=== PATIENT | female | born 1985 | race Caucasian/White ===

== ENCOUNTER 2016-09-13 09:33 | Emergency (ER) | payer SELFPAY ==
[2016-09-13] MEDS ORDERED: Ibuprofen 800 MG TAB ONE (10:09)
[2016-09-13] MEDS ORDERED: Fentanyl 100 MCG/2 ML VIAL ONE (10:09)
[2016-09-13] MEDS ORDERED: Ondansetron ODT 4 MG TAB ONE (10:09)
--- NOTE | 2016-09-13 10:24 | RAD ---
PORTABLE AP CHEST: Date: 09/13/16 HISTORY: Thrown from horse yesterday and now complains of chest pain. FINDINGS: Cardiac silhouette and pulmonary vasculature are within normal limits. Lungs are clear without evide nce of a pneumothorax or pleural effusion. There is mild right convex curvature of the thoracic spin e. There is a calcification overlying the left supraclavicular region, which is difficult to further localize, but could be related to small calcified lymph node. No fracture is visualized on this exa m. IMPRESSION: No acute cardiopulmonary process. POS: [facility]
--- NOTE | 2016-09-13 10:55 | CT ---
CT HEAD WITHOUT IV CONTRASTS: Date: 09/13/16 HISTORY: Thrown from horse yesterday, complains of head injury/pain. FINDINGS: There is no evidence of a hemorrhage, acute infarction, mass effect, or midline shift. Ventricular s ystem is normal in size, shape, and position. There is left anterior and anterolateral frontal scalp soft tissue swelling, as well as left periorbital subcutaneous soft tissue swelling. No postseptal hematoma or stranding is present. No calvarial fracture is identified. The visualized paranasal sinu ses and mastoid air cells are clear. IMPRESSION: 1. No acute intracranial abnormality is demonstrated. 2. Left anterolateral frontal scalp hematoma and left periorbital subcutaneous soft tissue swelling . POS: [facility]
--- NOTE | 2016-09-13 10:56 | CT ---
CT CERVICAL SPINE: Date: 09/13/16 HISTORY: Patient thrown from a horse with neck pain. TECHNIQUE: Noncontrast enhanced CT images of the cervical spine obtained. Coronal and sagittal reconstructions obtained. FINDINGS: Images demonstrate no evidence of acute cervical spine fractures, subluxations, or bony lesions. Odo ntoid is unremarkable. No evidence of rosey or retrolisthesis seen. Facets are in normal anatomic a lignment. IMPRESSION: Normal CT of cervical spine. POS: [facility]
--- NOTE | 2016-09-13 12:17 | ERRECORD ---
[facility] EMERGENCY RECORD HPI FALL (09:54 RWAG) CHIEF COMPLAINT: Patient presents for evaluation of fall, from height 5-7 feet. HISTORIAN: History provided by patient, thrown from horse yesterday, horse "stepped on my head" ?LOC. Pt c/o head and left rib pain. LOCATION: Symptoms are localized, most severe to left face/head, left ribs. QUALITY: Unable to describe the quality of the pain. TIME COURSE: Patient unable to describe onset of symptoms, There has been no change in the patient's symptoms over time. ASSOCIATED WITH: Associated with headache, constant, Associated with numbness. EXACERBATED BY: Patient's condition exacerbated by nothing. RELIEVED BY: Patient's condition relieved by nothing because patient has not tried anything for relief. RISK FACTORS: No risk factors for spinal injury, No risk factors for intracranial bleed. ROS (09:57 RWAG) CONSTITUTIONAL: Negative constitutional review of systems. EYES: Negative eye review of systems. ENT: Negative ears, nose, throat review of systems. CARDIOVASCULAR: Negative cardiovascular review of systems. RESPIRATORY: Negative respiratory review of systems. GI: Negative gastrointestinal review of systems. GENITOURINARY FEMALE: Negative genitourinary review of systems. MUSCULOSKELETAL: Historian reports fall, reports injury. SKIN: Negative skin review of systems. NEUROLOGIC: Historian reports headache. ENDOCRINE: Negative endocrine review of systems. HEMO/LYMPHATIC: Normal hematologic/lymphatic system review. ALLERGIC/IMMUNOLOGIC: Normal allergy/immunologic system review. PSYCHIATRIC: Negative psychiatric review of systems. NOTES: All systems reviewed, negative except as described above. PAST MEDICAL HISTORY (09:47 AWAT) MEDICAL HISTORY: No past medical history. FEMALE SURGICAL HISTORY: Surgical history of section. CYST REMOVED FROM left neck, WISDOM TEETH REMOVAL. PSYCHIATRIC HISTORY: Psychiatric history includes, anxiety, depression. SOCIAL HISTORY: Patient denies alcohol, Patient denies drug use, Patient currently uses tobacco, smokes cigarettes, daily, Patient has smoked for 15 years, Patient smokes 1/2 packs per day, . KNOWN ALLERGIES Penicillins traMADol: Reaction: Nausea &a-1R&a+25V*p+0X*[id number]*c202B*c15G*c2P*p-0X&a-25V&a+1R Name: Elvia Tran : 1985 F31 MedRec: [id number] AcctNum: [id number] Prepared: FriSep 13, 2016 13:13 by Interface Page 1 of 3 pMD [facility] EMERGENCY RECORD CURRENT MEDICATIONS (09:44 AWAT) None VITAL SIGNS VITAL SIGNS: BP: 130/75, Pulse: 71, Resp: 18, Temp: 98.3 (Tympanic), Pain: 10 (Constant), O2 sat: 100 on Room Air, Time: 09/13/2016 09:39. (09:39 AWAT) BP: 101/62, Pulse: 67, Resp: 18, Temp: 98.1, Pain: 4, O2 sat: 99 on RA, Time: 09/13/2016 11:55. (11:55 SFRE) PHYSICAL EXAM (09:57 RWAG) CONSTITUTIONAL: Vital signs reviewed, Patient alert and oriented to person, place and time. HEAD: Head exam included findings of, no Calderon's sign, No raccoon eyes, Contusion to left frontal, bruising and swelling around left eye "blackeye". EYES: Eye exam included findings of eyelids normal to inspection, Pupils equally round and reactive to light, Extraocular muscles intact, Conjunctiva normal, Sclera normal, Fundoscopic exam normal. ENT: ENT exam normal. NECK: Neck exam normal. RESPIRATORY CHEST: Respiratory exam included findings of no respiratory distress, no egophony, Breath sounds clear, Breath sounds otherwise clear, Chest exam included findings of chest movement symmetrical, Chest expansion equal, Percussion normal, Tenderness, mild, to the left lateral chest, Palpation of chest reproduces symptoms. CARDIOVASCULAR: Cardiovascular assessment normal. ABDOMEN FEMALE: Abdominal exam normal. BACK: Back exam normal. UPPER EXTREMITY: Upper extremity exam normal. LOWER EXTREMITY: Lower extremity exam normal. NEURO: Neuro exam findings include patient oriented to person, place and time, Felisa coma scale 15, Speech normal, Gait normal, Memory normal, Cranial nerves intact, Deep tendon reflexes normal, no focal motor deficits, no focal sensory deficits, no cerebellar deficits. SKIN: Skin exam normal. LYMPHATIC: Lymphatic exam normal. PSYCHIATRIC: Psychiatric exam normal. MEDICATION ADMINISTRATION SUMMARY Drug Name: ondansetron, Dose Ordered: 8 mg, Route: Sublingual, Status: Given, Time: 10:30 09/13/2016, Drug Name: fentaNYL (PF) injection, Dose Ordered: 50 mcg, Route: Intramuscular, Status: Given, Time: 10:30 09/13/2016, Drug Name: ibuprofen, Dose Ordered: 800 mg, Route: Oral, Status: Given, Time: 10:30 09/13/2016, Detailed record available in Medication &a-1R&a+25V*p+0X*[id number]*c202B*c15G*c2P*p-0X&a-25V&a+1R Name: Elvia Tran : 1985 [facility] MedRec: [id number] AcctNum: [id number] Prepared: FriSep 13, 2016 13:13 by Interface Page 2 of 3 pMD [facility] EMERGENCY RECORD Service section. PROBLEM LIST No recorded problems DIAGNOSIS (11:42 RWAG) FINAL: PRIMARY: contusion chest wall, ADDITIONAL: Concussion. PRESCRIPTION No recorded prescriptions DISPOSITION PATIENT: Disposition Type: Discharge, Disposition: *Discharge Home, Disposition Transport: Car, Condition: Improved. (11:42 RWAG) Patient left the department. (12:05 SFRE) Edmond: AWAPatricia=Leandra RN, Juan R RWABBY=MD Flo, Morgan SFRE=TOSHA Ashton, Nilda &a-1R&a+25V*p+0X*r0805B*c202B*c15G*c2P*p-0X&a-25V&a+1R Name: Elvia Tran : 1985 F31 MedRec: [id number] AcctNum: [id number] Prepared: FriSep 13, 2016 13:13 by Interface Page 3 of 3 pMD MTDD
--- NOTE | 2016-09-13 12:22 | PICIS ---
[facility] EMERGENCY RECORD TRIAGE (09:44 AWAT) TRIAGE NOTES: Bucked off horse yesterday, sore all over,, but primarily here for left breast/thorax pain 7 hurts to take a deep breath. Also hurting to left head. Pt sporting a black left eye & abrasions to left leg, arm, left head, and nose. (09:44 AWAT) PATIENT: NAME: Elvia Tran, AGE: 31, GENDER: female, : Fri1985, TIME OF GREET: FriSep 13, 2016 09:35, PREFERRED LANGUAGE: Iranian, ETHNICITY: Not or , FALL RISK: NO, ECODE BILLING MAP: [facility], SSN: [id number], Zip Code: [address], KG WEIGHT: 77.11, , , PERSON ID: [id number], PCP: none. (09:44 AWAT) PHONE: . (10:14) COMPLAINT: RIB PAIN, HEAD PAIN. (09:44 AWAT) ADMISSION: URGENCY: 4 Non Urgent, ADMISSION SOURCE: Home, TRANSPORT: Walk-in, BED: ED -05. (09:44 AWAT) PAIN: Patient complains of pain described as, aching, deep, miserable, sharp, on a scale 0-10 patient rates pain as 10, Location left thorax with deep breathing-sharp., Onset was 09/12/2016 @ 6:00 pm. (09:47 AWAT) IMMUNIZATIONS: Flu vaccine not up to date, Tetanus not up to date, Pneumococcal vaccine not up to date. (09:47 AWAT) SIRS SCORING: Temp range 96.8-101.1 (0), respiratory rate 12-24 (0), Mental Status altered: no (0). (09:47 AWAT) LMP: Last menstrual period: 08/12/2016. (09:47 AWAT) PROVIDERS: TRIAGE NURSE: Juan R Mobley RN. (09:44 AWAT) VITAL SIGNS: BP 130/75, Pulse 71, Resp 18, Temp 98.3, (Tympanic), Pain 10, (Constant), O2 Sat 100, on Room Air, Time 09/13/2016 09:39. (09:39 AWAT) PREVIOUS VISIT ALLERGIES: Penicillins. (09:44 AWAT) Penicillins. (09:47 AWAT) KNOWN ALLERGIES Penicillins traMADol: Reaction: Nausea CURRENT MEDICATIONS (09:44 AWAT) None VITAL SIGNS VITAL SIGNS: BP: 130/75, Pulse: 71, Resp: 18, Temp: 98.3 (Tympanic), Pain: 10 (Constant), O2 sat: 100 on Room Air, Time: 09/13/2016 09:39. (09:39 AWAT) BP: 101/62, Pulse: 67, Resp: 18, Temp: 98.1, Pain: 4, O2 sat: 99 on RA, Time: 09/13/2016 11:55. (11:55 SFRE) NURSING ASSESSMENT: FOCUSED (09:50 AWAT) CONSTITUTIONAL: Complex assessment performed, Patient arrives ambulatory, Gait steady, History obtained from patient, Patient &a-1R&a+25V*p+0X*u6178H*c202B*c15G*c2P*p-0X&a-25V&a+1R Name: Elvia Tran : 1985 F31 MedRec: [id number] AcctNum: [id number] Prepared: FriSep 13, 2016 13:18 by Interface Page 1 of 10 pMD [facility] EMERGENCY RECORD appears, uncomfortable, Patient cooperative, Patient alert, Oriented to person, place and time, Skin warm, Skin dry, Skin normal in color, Mucous membranes pink, Mucous membranes moist, Patient is well-groomed, Patient complains of PAIN FROM GETTING BUCKED OFF HORSE YESTERDAY. PAIN: aching pain, miserable pain, sharp pain, LEFT THORAX, LEFT HEAD, Onset of pain 09/12/2016 1800, constant, on a scale 0-10 patient rates pain as 10. EYES: Focused eye assessment finding include pupils equally round and reactive to light, Left pupil 3 mm in size, Right pupil 3 mm in size. NEURO: Focused neuro assessment findings include patient alert, cooperative, No facial droop noted, Speech coherent, no weakness, no numbness, Loss of consciousness for unknown length of time. GCS: Eye opening: (4) - Spontaneous, Verbal: (5) - Oriented/conversive, Motor: (6) - Obeys commands/Spontaneous, GCS Total: 15. RESPIRATORY: Focused respiratory assessment findings include breath sounds clear, to bilateral upper lobes, to the right middle lobe, to bilateral lower lobes. ABDOMEN: Focused abdominal assessment findings include abdomen soft, non tender. GENITOURINARY FEMALE: Focused genitourinary assessment not applicable. MUSCULOSKELETAL: Focused musculoskeletal assessment findings include normal range of motion, radial pulse +3, pedal pulse +3. LACERATION: Focused laceration assessment not applicable. NOTES: Emotional support needed and given, Notes: SEE PRIMARY & SECONDARY SURVEYS. PT SORE FROM BEING BUCKED OFF HORSE... SAFETY: Side rails up, Cart/Stretcher in lowest position, Call light within reach, Hospital ID band on, Physician notified of above findings. NURSING ASSESSMENT: PRIMARY SURVEY TRAUMA (09:50 AWAT) MECHANISM OF INJURY: Mechanism of injury fall, landing on left side, BUCKED OFF OORSE YESTERDAYF H. AIRWAY AND C-SPINE: Primary trauma survey airway and cervical spine assessment findings include airway patent, Gag reflex intact. BREATHING: Primary trauma survey breathing assessment findings include trachea midline, Breath sounds equal. CIRCULATION: Primary trauma survey circulation assessment findings include palpable pulse, radial, pedal, Heart sounds normal, Systolic blood pressure greater than 100, Capillary refill less than 2 seconds. DISABILITY: Primary trauma survey disability assessment findings include patient alert and oriented to person, place and time, Pupils equally round and reactive to light, Left pupil 3 mm in size, Right &a-1R&a+25V*p+0X*[id number]*c202B*c15G*c2P*p-0X&a-25V&a+1R Name: Elvia Tran : 1985 F31 MedRec: [id number] AcctNum: [id number] Prepared: FriSep 13, 2016 13:18 by Interface Page 2 of 10 pMD [facility] EMERGENCY RECORD pupil 3 mm in size, Movement to all extremities, GCS:, Eye opening: (4) - Spontaneous, Verbal: (5) - Oriented/conversive, Motor: (6) - Obeys commands/Spontaneous, GCS Total: 15. NOTES: Patient tolerated procedure well. NURSING ASSESSMENT: SECONDARY SURVEY TRAUMA (09:50 AWAT) MECHANISM OF INJURY: Mechanism of injury fall, Notes: BUCKED OFF HORSE YESTERDAY. CONSTITUTIONAL: Simple assessment performed, Patient arrives ambulatory, Gait steady, History obtained from patient, Patient appears, uncomfortable, Patient cooperative, Patient alert, Oriented to person, place and time, Skin warm, Skin dry, Skin normal in color, Mucous membranes pink, Mucous membranes moist, Patient is well-groomed, Patient complains of PAIN LEFT THORAX/BREAST REGION, LEFT HEAD. PAIN: aching pain, ACHING PAIN TO LEFT HEAD. SHARP PAIN TO LEFT THORAX REGION WITH DEEP BREATH., Onset of pain 09/12/2016 1800, on a scale 0-10 patient rates pain as 10, Pain exacerbated by, palpation, pressure, Nothing has been tried to alleviate the pain. SKIN: Skin assessment findings include skin warm, Skin dry, Skin normal in color, Inspection findings include abrasion, to LEFT HEAD, NOSE, LEFT KNEE, LEFT ELBOW & FOREARM., Notes: LEFT EYE BLACK. NEURO: Pupils equally round and reactive to light, Left pupil 3 mm in size, Right pupil 3 mm in size, Able to close eyes, Face symmetrical, Speech normal, GCS:, Eye opening: (4) - Spontaneous, Verbal: (5) - Oriented/conversive, Motor: (6) - Obeys commands/Spontaneous, GCS Total: 15, Hand grasps equal, Upper extremity strength strong, Lower extremity strength strong, Foot press equal, Notes: NO ABNORMALITIES OTHER THAN PAIN & ABRASIONS. EYES: Sclera, with hemorrhage on the left, normal on the right, Pupils equally round and reactive to light, Left pupil 3 mm in size, Right pupil 3 mm in size. EYES TRAUMA: Inspection findings include ecchymosis, to LEFT EYE. DENTAL: Dental assessment findings include mouth normal, Teeth normal. HEAD TRAUMA: Inspection findings include abrasion, to LEFT HEAD. NECK: Neck assessment findings include trachea midline, Notes: WNL. NECK TRAUMA: Neck trauma assessment findings include trachea midline, Notes: WNL. BACK: Right radial pulse +3(easily palpated, considered normal), Left radial pulse +3(easily palpated, considered normal), Left dorsalis pedis pulse +3(easily palpated, considered normal), Right dorsalis pedis pulse +3(easily palpated, considered normal), Notes: &a-1R&a+25V*p+0X*u2720W*c202B*c15G*c2P*p-0X&a-25V&a+1R Name: Elvia Tran : 1985 F31 MedRec: [id number] AcctNum: [id number] Prepared: FriSep 13, 2016 13:18 by Interface Page 3 of 10 pMD [facility] EMERGENCY RECORD WNL. RESPIRATORY/CHEST: Breath sounds clear, Respiratory assessment findings include respiratory effort easy, Respirations regular, Conversing normally, Neck and chest exam findings include trachea midline, Chest expansion equal, Chest movement symmetrical, Tenderness, to LEFT THORAX/BREAST REGION. CARDIOVASCULAR: Cardiovascular assessment findings include heart rate normal. THORACIC TRAUMA: Thoracic trauma assessment findings include chest movement symmetrical, Notes: VISUAL INSPECTION IS WNL. ABDOMEN: Abdomen assessment findings include abdomen symmetrical, Abdomen soft, Notes: WNL. GENITOURINARY FEMALE: Notes: DENIES PROBLEMS IN THIS REGION. LEFT UPPER EXTREMITY: Left upper extremity assessment findings include capillary refill less than 2 seconds, Skin color normal to hand, Skin temperature to hand warm, Distal sensation intact, Muscle tone normal, radial pulse is +3, Inspection findings include abrasion, to L ELBOW, FOREARM. RIGHT UPPER EXTREMITY: Right upper extremity assessment findings include capillary refill less than 2 seconds, Skin color normal to hand, Skin temperature to hand warm, Distal sensation intact, Muscle tone normal, radial pulse is +3, Notes: WNL. LEFT LOWER EXTREMITY: Left lower extremity assessment findings include capillary refill less than 2 seconds, Skin color normal, Skin temperature warm, Distal sensation intact, Muscle tone normal, dorsalis pedis pulse is +3, Inspection findings include abrasion, to LEFT KNEE. RIGHT LOWER EXTREMITY: Right lower extremity assessment findings include capillary refill less than 2 seconds, Skin color normal, Skin temperature warm, Distal sensation intact, Muscle tone normal, dorsalis pedis pulse is +3, Notes: WNL. PSYCH/SOCIAL: Psychiatric/social assessment findings include affect normal, Notes: CALM & COOPERATIVE. NOTES: Patient tolerated procedure well. SAFETY: Side rails up, Cart/Stretcher in lowest position, Call light within reach, Hospital ID band on, Notes: PT SAID HER FRIEND DROPPED HER OFF, WENT TO THE STORE, AND WILL BE BACK TO GET HER., Physician notified of above findings. NURSING PROCEDURE: DISCHARGE NOTE (11:55 SFRE) DISCHARGE: Patient discharged to home, ambulating without assistance, friend driving, accompanied by //partner, Summary of Care printed/ provided, Patient requested and was provided an electronic copy of Discharge Instructions, Discharge instructions given to patient, Simple or moderate discharge teaching performed, by TOSHA PEÑA, F/U WITH PCP. RX DIRECTED. RETURN TO ED NEEDED FOR NEW/CONCERNING OR WORSENING SYMPTOMS., Prescriptions given and instructions on side effects given, Name of prescription(s) &a-1R&a+25V*p+0X*m9845D*c202B*c15G*c2P*p-0X&a-25V&a+1R Name: Elvia Tran : 1985 F31 MedRec: [id number] AcctNum: [id number] Prepared: FriSep 13, 2016 13:18 by Interface Page 4 of 10 pMD [facility] EMERGENCY RECORD given: [facility]CO 10MG, Above person(s) verbalized understanding of discharge instructions and follow-up care. SAFETY: Side rails up, Cart/Stretcher in lowest position, Family at bedside, Call light within reach, Hospital ID band on. VITAL SIGNS: BP: 101, / 62, Pulse: 67, Resp: 18, Temp: 98.1, Pain: 4, O2 sat: 99, on: RA. NURSING PROCEDURE: NURSE NOTES (11:39 SFRE) NURSES NOTES: Patient in no apparent distress, Patient resting quietly, Patient is awaiting results, Patient is awaiting disposition. NURSING PROCEDURE: TRANSPORT TO TESTS (10:05 AWAT) PATIENT IDENTIFIER: Patient actively involved in identification process, Patient's identity verified by patient stating name, Patient's identity verified by patient stating date, Patient's identity verified by hospital ID bracelet. TRANSPORT TO TESTS: Transport indicated to facilitate diagnosis, Patient transported to x-ray, ambulatory, Accompanied by x-ray accounting technician. NOTES: Patient tolerated procedure well. SAFETY: Side rails up, Cart/Stretcher in lowest position, Call light within reach, Hospital ID band on, Physician notified of above findings. ORDER DETAILS Order Name: CT Brain WO Con, Status: Active, Time: 09:52 09/13/2016, User: XIN, - Ordered for: MD Rossi Richard, - Entered by: MD Rossi Richard - FriSep 13, 2016 09:52, - Quantity: 1, Order Name: CT Cervical Spine WO Con, Status: Active, Time: 09:52 09/13/2016, User: XIN, - Ordered for: MD Rossi Richard, - Entered by: MD Rossi Richard - FriSep 13, 2016 09:52, - Quantity: 1, Order Name: XR Chest 1 View Portable, Status: Active, Time: 09:49 09/13/2016, User: XIN, - Ordered for: MD Rossi Richard, - Entered by: MD Rossi Richard - FriSep 13, 2016 09:49, - Quantity: 1. MEDICATION ADMINISTRATION SUMMARY Drug Name: ondansetron, Dose Ordered: 8 mg, Route: Sublingual, Status: Given, Time: 10:30 09/13/2016, Drug Name: fentaNYL (PF) injection, Dose Ordered: 50 mcg, Route: Intramuscular, Status: Given, Time: 10:30 09/13/2016, Drug Name: ibuprofen, Dose Ordered: 800 mg, Route: Oral, Status: &a-1R&a+25V*p+0X*q7003Z*c202B*c15G*c2P*p-0X&a-25V&a+1R Name: Elvia Tran : 1985 F31 MedRec: [id number] AcctNum: [id number] Prepared: FriSep 13, 2016 13:18 by Interface Page 5 of 10 pMD [facility] EMERGENCY RECORD Given, Time: 10:30 09/13/2016, Detailed record available in Medication Service section. MEDICATION SERVICE (10:30 [facility]) fentaNYL (PF) injection: Order: fentaNYL (PF) injection (fentanyl citrate/preservative free) - Dose: 50 mcg : Intramuscular Schedule: Now Ordered by: Morgan Rossi MD Entered by: Morgan Rossi MD FriSep 13, 2016 09:53 , Acknowledged by: Nilda Ashton RN FriSep 13, 2016 10:03 Documented as given by: Juan R Mobley RN FriSep 13, 2016 10:30 Patient, Medication, Dose, Route and Time verified prior to administration. IM medication, Amount given: 50MCG, Amount wasted: 50MCG, Medication administered to right buttock, Correct patient, time, route, dose and medication confirmed prior to administration, Patient advised of actions and side-effects prior to administration, Allergies confirmed and medications reviewed prior to administration, Administered by SINA GIVENS, Patient in position of comfort, Side rails up, Cart in lowest position. ibuprofen: Order: ibuprofen - Dose: 800 mg : Oral Schedule: Now Ordered by: Morgan Rossi MD Entered by: Morgan Rossi MD FriSep 13, 2016 09:53 , Acknowledged by: Nilda Ashton RN FriSep 13, 2016 10:04 Documented as given by: Juan R Mobley RN FriSep 13, 2016 10:30 Patient, Medication, Dose, Route and Time verified prior to administration. Amount given: 800MG, Site: Medication administered P.O., Correct patient, time, route, dose and medication confirmed prior to administration, Patient advised of actions and side-effects prior to administration, Allergies confirmed and medications reviewed prior to administration, Administered by AW, Patient in position of comfort, Side rails up, Cart in lowest position. ondansetron: Order: ondansetron - Dose: 8 mg : Sublingual Schedule: Now Ordered by: Morgan Rossi MD Entered by: Morgan Rossi MD FriSep 13, 2016 09:54 , Acknowledged by: Nilda Ashton RN FriSep 13, 2016 10:03 Documented as given by: Juan R Mobley RN FriSep 13, 2016 10:30 Patient, Medication, Dose, Route and Time verified prior to administration. Amount given: 8MG, Site: Medication administered S.L., Correct patient, time, route, dose and medication confirmed prior to administration, Patient advised of actions and side-effects prior to administration, Allergies confirmed and medications reviewed prior to administration, Administered by AW, Patient in position of comfort, Side rails up, Cart in lowest position. &a-1R&a+25V*p+0X*j1862D*c202B*c15G*c2P*p-0X&a-25V&a+1R Name: Elvia Tran : 1985 F31 MedRec: [id number] AcctNum: [id number] Prepared: FriSep 13, 2016 13:18 by Interface Page 6 of 10 pMD [facility] EMERGENCY RECORD HPI FALL (09:54 RW) CHIEF COMPLAINT: Patient presents for evaluation of fall, from height 5-7 feet. HISTORIAN: History provided by patient, thrown from horse yesterday, horse "stepped on my head" ?LOC. Pt c/o head and left rib pain. LOCATION: Symptoms are localized, most severe to left face/head, left ribs. QUALITY: Unable to describe the quality of the pain. TIME COURSE: Patient unable to describe onset of symptoms, There has been no change in the patient's symptoms over time. ASSOCIATED WITH: Associated with headache, constant, Associated with numbness. EXACERBATED BY: Patient's condition exacerbated by nothing. RELIEVED BY: Patient's condition relieved by nothing because patient has not tried anything for relief. RISK FACTORS: No risk factors for spinal injury, No risk factors for intracranial bleed. ROS (09:57 RWAG) CONSTITUTIONAL: Negative constitutional review of systems. EYES: Negative eye review of systems. ENT: Negative ears, nose, throat review of systems. CARDIOVASCULAR: Negative cardiovascular review of systems. RESPIRATORY: Negative respiratory review of systems. GI: Negative gastrointestinal review of systems. GENITOURINARY FEMALE: Negative genitourinary review of systems. MUSCULOSKELETAL: Historian reports fall, reports injury. SKIN: Negative skin review of systems. NEUROLOGIC: Historian reports headache. ENDOCRINE: Negative endocrine review of systems. HEMO/LYMPHATIC: Normal hematologic/lymphatic system review. ALLERGIC/IMMUNOLOGIC: Normal allergy/immunologic system review. PSYCHIATRIC: Negative psychiatric review of systems. NOTES: All systems reviewed, negative except as described above. PAST MEDICAL HISTORY (09:47 AWAT) MEDICAL HISTORY: No past medical history. FEMALE SURGICAL HISTORY: Surgical history of section. CYST REMOVED FROM left neck, WISDOM TEETH REMOVAL. PSYCHIATRIC HISTORY: Psychiatric history includes, anxiety, depression. SOCIAL HISTORY: Patient denies alcohol, Patient denies drug use, Patient currently uses tobacco, smokes cigarettes, daily, Patient has smoked for 15 years, Patient smokes 1/2 packs per day, . PHYSICAL EXAM (09:57 RWAG) CONSTITUTIONAL: Vital signs reviewed, Patient alert and oriented &a-1R&a+25V*p+0X*e4219R*c202B*c15G*c2P*p-0X&a-25V&a+1R Name: Elvia Tran : 1985 F31 MedRec: [id number] AcctNum: [id number] Prepared: FriSep 13, 2016 13:18 by Interface Page 7 of 10 pMD [facility] EMERGENCY RECORD to person, place and time. HEAD: Head exam included findings of, no Calderon's sign, No raccoon eyes, Contusion to left frontal, bruising and swelling around left eye "blackeye". EYES: Eye exam included findings of eyelids normal to inspection, Pupils equally round and reactive to light, Extraocular muscles intact, Conjunctiva normal, Sclera normal, Fundoscopic exam normal. ENT: ENT exam normal. NECK: Neck exam normal. RESPIRATORY CHEST: Respiratory exam included findings of no respiratory distress, no egophony, Breath sounds clear, Breath sounds otherwise clear, Chest exam included findings of chest movement symmetrical, Chest expansion equal, Percussion normal, Tenderness, mild, to the left lateral chest, Palpation of chest reproduces symptoms. CARDIOVASCULAR: Cardiovascular assessment normal. ABDOMEN FEMALE: Abdominal exam normal. BACK: Back exam normal. UPPER EXTREMITY: Upper extremity exam normal. LOWER EXTREMITY: Lower extremity exam normal. NEURO: Neuro exam findings include patient oriented to person, place and time, Felisa coma scale 15, Speech normal, Gait normal, Memory normal, Cranial nerves intact, Deep tendon reflexes normal, no focal motor deficits, no focal sensory deficits, no cerebellar deficits. SKIN: Skin exam normal. LYMPHATIC: Lymphatic exam normal. PSYCHIATRIC: Psychiatric exam normal. EVENTS TRANSFER: Triage to Emergency Main ED -05. (FriSep 13, 2016 09:44 AWAT) Removed from Emergency Main ED -05. (12:05 SFRE) PROBLEM LIST No recorded problems DIAGNOSIS (11:42 RWAG) FINAL: PRIMARY: contusion chest wall, ADDITIONAL: Concussion. DISPOSITION PATIENT: Disposition Type: Discharge, Disposition: *Discharge Home, Disposition Transport: Car, Condition: Improved. (11:42 RWAG) Patient left the department. (12:05 SFRE) INSTRUCTION (11:42 RWAG) DISCHARGE: CHEST CONTUSION, CONCUSSION, NO WAKE UP. FOLLOWUP: Follow up with Primary Care Physician in 5 days. SPECIAL: Follow-up with your PCP. &a-1R&a+25V*p+0X*x1363R*c202B*c15G*c2P*p-0X&a-25V&a+1R Name: Elvia Tran : 1985 F31 MedRec: [id number] AcctNum: [id number] Prepared: FriSep 13, 2016 13:18 by Interface Page 8 of 10 pMD [facility] EMERGENCY RECORD PRESCRIPTION No recorded prescriptions IMAGING PRESCRIPTION: Image captured from scanner. (11:47 SFRE) *DISCHARGE INSTRUCTIONS RECEIPT: Image captured from scanner. (12:04 SFRE) *SUPPLY CHARGE SHEET: Image captured from scanner. (12:04 SFRE) ADMIN (13:11 RWAG) DIGITAL SIGNATURE: MD Rossi Richard. RESULTS RADIOLOGY: XR Chest 1 View Portable Observe DT: FriSep 13, 2016 09:50, CXRP PORTABLE AP CHEST: Date: 09/13/16 HISTORY: Thrown from horse yesterday and now complains of chest pain. FINDINGS: Cardiac silhouette and pulmonary vasculature are within normal limits. Lungs are clear without evide nce of a pneumothorax or pleural effusion. There is mild right convex curvature of the thoracic spin e. There is a calcification overlying the left supraclavicular region, which is difficult to further localize, but could be related to small calcified lymph node. No fracture is visualized on this exa m. IMPRESSION: No acute cardiopulmonary process. POS: [facility] . (10:38 RWAG) CT Brain WO Con Observe DT: FriSep 13, 2016 09:54, BR CT HEAD WITHOUT IV CONTRASTS: Date: 09/13/16 HISTORY: Thrown from horse yesterday, complains of head injury/pain. &a-1R&a+25V*p+0X*h3771X*c202B*c15G*c2P*p-0X&a-25V&a+1R Name: Elvia Tran : 1985 F31 MedRec: [id number] AcctNum: [id number] Prepared: FriSep 13, 2016 13:18 by Interface Page 9 of 10 pMD [facility] EMERGENCY RECORD FINDINGS: There is no evidence of a hemorrhage, acute infarction, mass effect, or midline shift. Ventricular s ystem is normal in size, shape, and position. There is left anterior and anterolateral frontal scalp soft tissue swelling, as well as left periorbital subcutaneous soft tissue swelling. No postseptal hematoma or stranding is present. No calvarial fracture is identified. The visualized paranasal sinu ses and mastoid air cells are clear. IMPRESSION: 1. No acute intracranial abnormality is demonstrated. 2. Left anterolateral frontal scalp hematoma and left periorbital subcutaneous soft tissue swelling . POS: [facility] . (11:32 SFRE) [place]: AWAT=TOSHA Mobley, Juan R RWABBY=MD Flo, Morgan SFRE=TOSHA Ashton, Nilda &a-1R&a+25V*p+0X*n9285H*c202B*c15G*c2P*p-0X&a-25V&a+1R Name: Elvia Tran : 1985 [facility] MedRec: [id number] AcctNum: [id number] Prepared: FriSep 13, 2016 13:18 by Interface Page 10 of 10 pMD [facility] MEDICATION RECONCILIATION You were seen in the Emergency Department on: FriSep 13, 2016 KNOWN ALLERGIES Penicillins traMADol: Reaction: Nausea MEDICATIONS GIVEN WHILE IN THE EMERGENCY DEPARTMENT ibuprofen - Dose: 800 milligram(s) : Oral fentaNYL (PF) injection (fentanyl citrate/preservative free) - Dose: 50 microgram(s) : Intramuscular ondansetron - Dose: 8 milligram(s) : Sublingual HOME MEDICATIONS None Notes from the emergency department Reviewed with patient &a-1R&a+25V*p+0X*b2988N*c202B*c15G*c2P*p-0X&a-25V&a+1R Name: Elvia Tran : 1985 1 MedRec: [id number] AcctNum: [id number] Prepared: FriSep 13, 2016 13:18 by Interface pMD MTDD
== END 2016-09-13 11:55 | disposition home or self-care (01) ==
LOC: MADERS 09:33
DX: S20.212A Contusion of left front wall of thorax, initial encounter (principal); S06.0X9A Concussion with loss of consciousness of unspecified duration, initial encounter; F41.9 Anxiety disorder, unspecified; F32.9 Major depressive disorder, single episode, unspecified; F17.210 Nicotine dependence, cigarettes, uncomplicated; X58.XXXA Exposure to other specified factors, initial encounter
CPT/HCPCS: 70450; 71010; 72125; 96372; J3010; Q0162

== ENCOUNTER 2017-04-06 01:56 | Emergency (ER) | payer OTHER, SELFPAY ==
[2017-04-06 02:37] LABS: BHCG - Serum Negative (NEGATIVE); Pregs Control Background? CLEAR/WHITE (CLR/WHITE); Pregs Control Bar Appear? YES (CONTROL BAR)
[2017-04-06 02:44] LABS: #Basophils 0.1 thou/uL (0.0-0.2); #Eosinphils 0.2 thou/uL (0.0-0.7); #Lymphocytes 2.7 thou/uL (1.20-3.40); #Monocytes 1.1 thou/uL (0.11-0.59); #Neutrophils 5.6 thou/uL (1.40-6.50); %Eosinophils 2.4 % (0.0-10.0); %Lymphocytes 27.9 % (21.0-51.0); %Monocytes 10.9 % (0.0-10.0); %Neutrophils 57.8 % (42.0-75.0); Hemoglobin 12.4 g/dL (12.0-16.0); Mean Corpuscular HGB CONC 33.9 g/dL (32.0-36.0); Mean Corpuscular Hemoglobin 30.9 pg (27.0-31.0); Mean Corpuscular Volume 91.2 fl (81.0-99.0); Mean Platelet Volume 8.4 fL (7.4-10.4); Platelet Count 285 thou/uL (130-400); RBC Distribution Width 12.7 % (11.5-14.5); Red Blood Cell (RBC) Count 4.02 mill/uL (4.20-5.40); White Blood Cell (WBC) Count 9.7 thou/uL (4.8-10.8)
[2017-04-06 02:46] LABS: ALT (SGPT) 9 U/L (8-55); AST (SGOT) 15 U/L (5-34); Alcohol Less than 10 mg/dL (Less than 10); Alkaline Phosphatase 69 U/L (40-150); Anion Gap 14 mmol/L (10-20); BUN (Urea Nitrogen) 8 mg/dL (7.0-18.7); Bilirubin, Total 0.4 mg/dL (0.2-1.2); Calc. Creatinine Clearance 0 mL/min (70-130); Calcium 8.8 mg/dL (7.8-10.44); Carbon Dioxide 22 mmol/L (22-29); Chloride 108 mmol/L (98-107); Estimated GFR-MDRD 86; Globulin 2.9 g/dL (2.4-3.5); Glucose 92 mg/dL (70-105); Lipase 21 U/L (8-78); Potassium 3.2 mmol/L (3.5-5.1); Protein, Total 6.9 g/dL (6.0-8.3); Sodium 141 mmol/L (136-145)
[2017-04-06] MEDS ORDERED: Ketorolac Tromethamine 30 MG/ML VIAL ONE (02:57)
[2017-04-06] MEDS ORDERED: Ondansetron HCl/PF 4 MG/2 ML Vial ONE (02:57)
--- NOTE | 2017-04-06 07:41 | RAD ---
PORTABLE SUPINE CHEST: HISTORY: Trauma. The lungs are clear. Heart and mediastinum appear unremarkable. IMPRESSION: No acute abnormality. POS: [facility]
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
== END 2017-04-06 05:04 | disposition home or self-care (01) ==
LOC: MADERS 01:56
DX: S83.92XA Sprain of unspecified site of left knee, initial encounter (principal); S70.01XA Contusion of right hip, initial encounter; M54.2 Cervicalgia; F17.210 Nicotine dependence, cigarettes, uncomplicated; F41.9 Anxiety disorder, unspecified; F32.9 Major depressive disorder, single episode, unspecified; V89.0XXA Person injured in unspecified motor-vehicle accident, nontraffic, initial encounter
CPT/HCPCS: 36415; 70450; 71010; 72125; 72170; 80053; 80307; 83690; 84703; 85025; 96372; 96374; G0390; J1885; J2405

== ENCOUNTER 2024-01-07 22:14 | Emergency (ER) | payer OTHER, SELFPAY ==
[2024-01-07] MEDS ORDERED: Ibuprofen 800 MG TAB ONE (23:10)
== END 2024-01-07 23:14 | disposition home or self-care (01) ==
LOC: MADERS 22:14
DX: L03.213 Periorbital cellulitis (principal); F17.290 Nicotine dependence, other tobacco product, uncomplicated
CPT/HCPCS: 99283